=== PATIENT | female | born 2000 | race Two or more races ===

== ENCOUNTER 2022-03-14 10:14 | Observation (INO) | payer MEDICAID | END 2022-03-14 11:24 | disposition home or self-care (01) | LOC: LDRP 10:14 → UNDOADMOB 10:14 → EDBD 10:14 → LDRP 10:19 | PROVIDERS: ADMIT Obstetrics & Gynecology; ATTEND Obstetrics & Gynecology | DX: O32.1XX0 Maternal care for breech presentation, not applicable or unspecified (principal); Z3A.38 38 weeks gestation of pregnancy | CPT/HCPCS: 59025; 81002; 94760; G0378 ==

== ENCOUNTER 2022-03-17 08:35 | Inpatient (IN) | payer MEDICAID ==
[2022-03-17] VITALS (7 sets, daily range): BP systolic 107–132; BP diastolic 60–73
[~2022-03-17] VITALS: Ht 157.5 cm; Wt 74.8 kg
[2022-03-17] MEDS ORDERED: ceFAZolin 1GM/50ML 50 ML IV ONE (08:45)
[2022-03-17] MEDS ORDERED: LACTATED RINGER'S 1,000 ML IV ONE (08:45)
[2022-03-17 09:09] LABS: Basophils # (auto) 0 10 ^3/uL (0-0.2); Basophils % (auto) 0.3 % (0.0-2.0); Eosinophils # (auto) 0 10 ^3/uL (0-0.8); Eosinophils % (auto) 0.6 % (0.0-7.0); Hematocrit 36.8 % (36.0-46.0); Hemoglobin 12.6 g/dL (12.2-16.2); Lymphocytes # (auto) 2.3 10 ^3/uL (0.4-5.4); Lymphocytes % (auto) 33.2 % (10.0-50.0); Mean Corpuscular Hemoglobin 30.7 pg (28.0-32.0); Mean Corpuscular Hgb Conc. 34.4 g/dL (32.0-36.0); Mean Corpuscular Volume 89.2 fL (80.0-100.0); Monocytes # (auto) 0.8 10 ^3/uL (0-1.3); Neutrophils # (auto) 3.8 10 ^3/uL (1.6-8.6); Neutrophils % (auto) 54.9 % (37.0-80.0); Nucleated Red Blood Cells % 0.1 %; Red Blood Cells 4.12 10^6/uL (4.0-5.20); Red Cell Distribution Width 12.6 % (11.8-14.3)
[2022-03-17 09:15] LABS: Urine Bacteria NONE SEEN /hpf (None Seen); Urine Blood Negative /uL (Negative); Urine Mucus FEW (None Seen); Urine Specific Gravity 1.016 (1.001-1.035); Urine WBC 2 /hpf (0 - 5)
[2022-03-17] MEDS ORDERED: TETRACAINE 1% INJ 2 ML VIAL IJ ONE (09:21)
[2022-03-17 09:24] LABS: Calcium 8.7 mg/dL (8.5-10.1)
[2022-03-17 09:27] LABS: BUN/Creatinine Ratio 21.1; Bilirubin, Total 0.3 mg/dL (0.2-1.0); INR 0.86 (0.9-1.15); Partial Thromboplastin Time 26.1 sec (24.6-33.4); Total Protein 6.9 g/dL (6.4-8.2)
[2022-03-17] MEDS: LACTATED RINGER'S 1,000 ML IV SCH ×2 (10:06→12:40)
[2022-03-17] MEDS ORDERED: MIDAZOLAM HCL 2MG/2ML 2ml VIAL (1mg/ml) ONE (10:26)
[2022-03-17] MEDS ORDERED: MORPHINE SULF PF 5 MG/10 ML VIAL ONE (10:26)
[2022-03-17] MEDS ORDERED: fentaNYL CITRATE 100 MCG/2 ML VL ONE (10:26)
[2022-03-17] MEDS ORDERED: HYDROmorphone HCL 2 MG/ML VL/or syr IV PRN (10:45)
[2022-03-17] MEDS ORDERED: NALBUPHINE HCL 10 MG/1ml INJECTION SUBCUT ONE (10:45)
[2022-03-17] MEDS ORDERED: DexAMETHasone SOD PHOS 10MG/1ML VIAL INJ IV PRN (10:45)
[2022-03-17] MEDS ORDERED: LABETALOL HCL 5 MG/ML 4ML SYRINGE IV PRN (10:45)
[2022-03-17] MEDS ORDERED: NALOXONE HCL 0.4 MG/ML VIAL IV PRN (10:45)
[2022-03-17] MEDS ORDERED: diphenhdrAMINE HCL 50 MG/1 ML VL IV PRN (10:45)
[2022-03-17] MEDS ORDERED: ePHEDrine SULFATE 50 MG/ML AMP IV PRN (10:45)
[2022-03-17] MEDS ORDERED: ONDANSETRON HCL 4 MG/2 ML VIAL IV PRN ×2 (10:45→11:45)
[2022-03-17] MEDS ORDERED: CARBOPROST TROMETHAMINE 250 MCG/1ML VIAL IM ONE (11:19)
[2022-03-17] MEDS ORDERED: ceFAZolin 1GM/50ML 50 ML IV SCH (11:45)
[2022-03-17] MEDS ORDERED: LACT. RINGERS/OXYTOCIN 20UNITS 1,000 ML IV ONE (11:45)
[2022-03-17] MEDS ORDERED: GUM (CHEWING) 1 GUM CHEW CHEW ONE (11:45)
[2022-03-17] MEDS ORDERED: oxyTOCIN 10 UNIT/ML 10ML VIAL ONE (11:49)
[2022-03-17 13:51] LABS: Alcohol, Urine < 3.0 mg/dL (0-10); Amphetamine Screen, Urine NEGATIVE (NEGATIVE); Barbiturate Scree,Urine NEGATIVE (NEGATIVE); Benzodiazephine Screen, Urine NEGATIVE (NEGATIVE); Cannabinoid Screen, Urine NEGATIVE (NEGATIVE); Cocaine Screen, Urine NEGATIVE (NEGATIVE); Opiate Scree,Urine NEGATIVE (NEGATIVE); Phencyclidine Screen, Urine NEGATIVE (NEGATIVE)
[2022-03-17] MEDS: ACETAMINOPHEN IV 1000 MG/100ML (10MG/ML) IV PRN ×2 (14:31→21:58)
[2022-03-17] MEDS ORDERED: DIPHENOXYLATE W/ATROPINE 2.5 MG TAB PO ONE (15:15)
[2022-03-17] MEDS: ceFAZolin 1GM/50ML 50 ML IV SCH (19:18)
[2022-03-17 22:04] LABS: Basophils # (auto) 0 10 ^3/uL (0-0.2); Basophils % (auto) 0.2 % (0.0-2.0); Eosinophils # (auto) 0 10 ^3/uL (0-0.8); Eosinophils % (auto) 0.2 % (0.0-7.0); Hemoglobin 9.9 g/dL (12.2-16.2); Lymphocytes # (auto) 0.7 10 ^3/uL (0.4-5.4); Lymphocytes % (auto) 10.3 % (10.0-50.0); Mean Corpuscular Hemoglobin 30.7 pg (28.0-32.0); Monocytes # (auto) 0.6 10 ^3/uL (0-1.3); Monocytes % (auto) 8.6 % (0.0-12.0); Neutrophils # (auto) 5.7 10 ^3/uL (1.6-8.6); Neutrophils % (auto) 80.7 % (37.0-80.0); Red Blood Cells 3.22 10^6/uL (4.0-5.20); Red Cell Distribution Width 12.7 % (11.8-14.3)
[2022-03-18] VITALS (15 sets, daily range): BP systolic 101–125; BP diastolic 48–72
[2022-03-18] MEDS: LACTATED RINGER'S 1,000 ML IV SCH ×3 (00:05→16:45)
[2022-03-18] MEDS: ceFAZolin 1GM/50ML 50 ML IV SCH ×2 (03:22→11:15)
[2022-03-18 05:23] LABS: Basophils # (auto) 0 10 ^3/uL (0-0.2); Basophils % (auto) 0.2 % (0.0-2.0); Eosinophils # (auto) 0 10 ^3/uL (0-0.8); Eosinophils % (auto) 0.1 % (0.0-7.0); Hematocrit 34.7 % (36.0-46.0); Hemoglobin 11.8 g/dL (12.2-16.2); Lymphocytes # (auto) 0.4 10 ^3/uL (0.4-5.4); Lymphocytes % (auto) 5.3 % (10.0-50.0); Mean Corpuscular Hemoglobin 30.5 pg (28.0-32.0); Mean Corpuscular Hgb Conc. 34.1 g/dL (32.0-36.0); Mean Corpuscular Volume 89.6 fL (80.0-100.0); Monocytes # (auto) 0.5 10 ^3/uL (0-1.3); Monocytes % (auto) 6.3 % (0.0-12.0); Neutrophils # (auto) 6.5 10 ^3/uL (1.6-8.6); Neutrophils % (auto) 88.1 % (37.0-80.0); Red Blood Cells 3.88 10^6/uL (4.0-5.20); Red Cell Distribution Width 12.7 % (11.8-14.3); White Blood Cell 7.3 10^3/uL (4.4-10.8)
[2022-03-18] MEDS: ACETAMINOPHEN IV 1000 MG/100ML (10MG/ML) IV PRN (05:37)
[2022-03-18 07:06] LABS: RPR Non Reactive (Non Reactive)
[2022-03-18] MEDS: HYDROcodone-ACET 5/325MG TAB PO PRN ×3 (07:31→23:46)
[2022-03-18] MEDS: DOCUSATE SOD 100 MG CAP PO SCH ×2 (10:00→22:00)
[2022-03-18] MEDS: IBUPROFEN 800 MG TAB PO PRN ×2 (11:18→19:29)
[2022-03-18] MEDS: SIMETHICONE 80 MG CHEWABLE TABLET PO SCH ×3 (12:20→22:00)
[2022-03-18] MEDS ORDERED: IBUP800T27 PO (20:13)
[2022-03-18] MEDS ORDERED: HYDR-4902 PO (20:13)
[2022-03-18] MEDS ORDERED: DOCU-94 PO (20:13)
[2022-03-19] VITALS (7 sets, daily range): BP systolic 93–107; BP diastolic 51–70
[2022-03-19] MEDS: LACTATED RINGER'S 1,000 ML IV SCH ×2 (00:45→08:45)
[2022-03-19] MEDS: IBUPROFEN 800 MG TAB PO PRN (03:45)
[2022-03-19] MEDS: SIMETHICONE 80 MG CHEWABLE TABLET PO SCH ×4 (05:33→22:15)
[2022-03-19] MEDS: HYDROcodone-ACET 5/325MG TAB PO PRN ×4 (05:34→22:15)
[2022-03-19] MEDS: DOCUSATE SOD 100 MG CAP PO SCH ×2 (10:21→22:16)
[2022-03-20] MEDS: IBUPROFEN 800 MG TAB PO PRN (02:24)
[2022-03-20 03:00] VITALS: BP 105/64
[2022-03-20] MEDS: HYDROcodone-ACET 5/325MG TAB PO PRN ×2 (05:02→12:47)
[2022-03-20] MEDS: SIMETHICONE 80 MG CHEWABLE TABLET PO SCH ×2 (07:10→12:47)
[2022-03-20 07:30] VITALS: BP 94/59
[2022-03-20 11:00] VITALS: BP 97/55
[2022-03-20] MEDS: DOCUSATE SOD 100 MG CAP PO SCH (12:47)
== END 2022-03-20 13:10 | disposition home or self-care (01) | DRG 540 ==
LOC: LDRP 08:35
PROVIDERS: ADMIT Obstetrics & Gynecology; ATTEND Obstetrics & Gynecology
PROC: 0UCC7ZZ Extirpation of Matter from Cervix, Via Natural or Artificial Opening (ICD-10-PCS; 2022-03-17)
PROC: 10D00Z1 Extraction of Products of Conception, Low, Open Approach (ICD-10-PCS; principal; 2022-03-17 10:40)
DX: O32.1XX0 Maternal care for breech presentation, not applicable or unspecified (principal); O34.33 Maternal care for cervical incompetence, third trimester; Z20.822 Contact with and (suspected) exposure to COVID-19; Z37.0 Single live birth; Z3A.38 38 weeks gestation of pregnancy
CPT/HCPCS: 36415; 59025; 80053; 80307; 81001; 85025; 85610; 85730; 86592; 86850; 86900; 86901; 87426; 94760; 94762; 96360; 96361; 96366; G0378; J0131; J0690; J2250; J2590